=== PATIENT | female | born 1950 | race Caucasian/White ===

== ENCOUNTER 2022-03-17 09:01 | Outpatient (CLI) | payer OTHER, SELFPAY ==
[2022-03-17 10:12] LABS: SARS Antigen* negative (Negative)
--- NOTE | 2022-03-17 10:35 | W.ANESCHARGE ---
Anesthesia Charges Start Date/Time Anesthesia Start Date: 03/17/22 Anesthesia Start Time: 09:55 Stop Date/Time Anesthesia Stop Date: 03/17/22 Anesthesia Stop Time: 10:33 Summary Emergency: No Extremes of Age: Over 72-CPT [id number]
--- NOTE | 2022-03-17 10:51 | W.ANESCHARGE ---
Anesthesia Charges Start Date/Time Anesthesia Start Date: 03/17/22 Anesthesia Start Time: 09:55 Stop Date/Time Anesthesia Stop Date: 03/17/22 Anesthesia Stop Time: 10:33 Summary Emergency: No Extremes of Age: Over 72-CPT [id number]
== END 2022-03-17 09:02 | disposition home or self-care (01) ==
LOC: OP CLINIC 09:02
PROVIDERS: PCP Family Medicine; Visit Provider Surgery
DX: Z12.11 Encounter for screening for malignant neoplasm of colon; K62.1 Rectal polyp; K57.30 Diverticulosis of large intestine without perforation or abscess without bleeding; Z86.010 Personal history of colon polyps
CPT/HCPCS: 00811; 00812; 45385; 87426; 99100; J2704

== ENCOUNTER 2022-09-07 08:57 | Outpatient (CLI) | payer OTHER, SELFPAY ==
--- NOTE | 2022-09-07 09:15 | CRLHL7_ITS ---
For Patients: As a result of the Cures Act, medical imaging exams and procedure reports are released immediately into your electronic medical record. You may view this report before your referring provider. If you have questions, please contact your health care provider. BILATERAL SCREENING MAMMOGRAM WITH COMPUTER-AIDED DETECTION AND TOMOSYNTHESIS TECHNIQUE: CC and MLO views were obtained. These mammographic images have been obtained using full-field digital technique. These mammographic images were interpreted with the benefit of computer-aided detection. Breast Tomosynthesis was used in this interpretation. COMPARISON FILM: 05/07/21, 04/30/20, 04/11/19. FINDINGS: There are scattered areas of fibroglandular density IMPRESSION: There is no radiographic evidence for malignancy. ASSESSMENT: BI-RADS Category 1: Negative RECOMMENDATION: Routine screening mammogram in 1 year. A lay language report of this examination will be provided to the patient. Leroy Bui M.D. Diagnostic Radiologist [email or web address] MARIA M/savita / be/Dictated by: Leroy Bui MD @ 09/07/2022 12:26:00 PM (Electronically Signed)
== END 2022-09-07 08:58 | disposition home or self-care (01) ==
LOC: MAMMO 08:58
PROVIDERS: PCP Family Medicine; Visit Provider Family Medicine
DX: Z12.31 Encounter for screening mammogram for malignant neoplasm of breast (principal)
CPT/HCPCS: 77063; 77067

== ENCOUNTER 2022-10-30 08:03 | Outpatient (CLI) | payer OTHER, SELFPAY | END 2022-10-30 08:04 | disposition home or self-care (01) | LOC: NFLDREF 11-01 18:13 | PROVIDERS: PCP Family Medicine; Referring Provider Family Medicine; Visit Provider Family Medicine | DX: E78.00 Pure hypercholesterolemia, unspecified (principal) | CPT/HCPCS: 80053; 80061 ==

== ENCOUNTER 2023-02-01 12:52 | Outpatient (CLI) | payer OTHER, SELFPAY ==
--- NOTE | 2023-02-01 13:00 | CRLHL7_ITS ---
For Patients: As a result of the Century Cures Act, medical imaging exams and procedure reports are released immediately into your electronic medical record. You may view this report before your referring provider. If you have questions, please contact your health care provider. INDICATION: Shortness of breath and dyspnea on exertion. TECHNIQUE: CT chest PE was acquired with 95 cc Isovue 370 intravenous contrast. COMPARISON: None. FINDINGS: Heart and vasculature: Extensive filling defects consistent with acute pulmonary embolus. Filling defects are at the branch point of the right upper lobe pulmonary artery, right lower lobe, right middle lobe, left lower lobe and left upper lobe. Occlusive component within the lingula proximally. RV/LV ratio: 1.43 No pericardial effusion. Thoracic aorta is normal in caliber. Lungs and pleural: No pleural effusion or pneumothorax. Biapical pleural parenchymal scarring. Scattered areas of discoid atelectasis within both lungs. Lymph nodes/mediastinum: No mediastinal, hilar, or axillary adenopathy. No enlarged mediastinal lymph nodes. Chest wall: No masses. Upper abdomen: Cyst at the dome of the liver measuring 2.7 centimeters. Bones: Unremarkable for age. IMPRESSION: Acute pulmonary embolus extending to all lobes with elevated RV/LV ratio suggesting right heart strain. Results called to ARELIS Quinteros, for Ronda Herbert at [facility] at 1622 on 02/01/2023. Patient was sent to the ER for the CT scan and Neli will contact her to stay at the ER for evaluation. Please note that all CT scans at this facility use dose modulation, iterative reconstruction, and/or weight-based dosing when appropriate to reduce radiation dose to as low as reasonably achievable. Dictated by Mau Jhaveri MD @ 02/01/2023 4:23:35 PM (Electronically Signed)
== END 2023-02-01 12:53 | disposition home or self-care (01) ==
PROVIDERS: PCP Family Medicine; Visit Provider Physician Assistant Medical
DX: R05.9 Cough, unspecified (principal); I26.99 Other pulmonary embolism without acute cor pulmonale; R06.09 Other forms of dyspnea
CPT/HCPCS: 71275; 99284; A9270; Q9967

== ENCOUNTER 2023-02-01 17:04 | Emergency (ER) | payer OTHER, SELFPAY ==
[2023-02-01] VITALS (9 sets, daily range): BP systolic 133–141; BP diastolic 85–90; PULSE 88–103; RESP 16; TEMP 37.2; O2SAT 91–98; BMI 24.3
--- NOTE | 2023-02-01 19:09 | ED.SOB ---
HPI - SOB/Dyspnea General Chief Complaint: Shortness of Breath/Dyspnea Stated Complaint: Blood clot in lung Time Seen by Provider: 02/01/23 17:09 History of Present Illness HPI Narrative: This 72-year-old female was at a [facility] and sent here for of CTA of her chest to rule out pulmonary embolism. She was instructed to come to the ER if the results were positive. There is evidence of bilateral pulmonary embolism with some suggestion of some right heart strain. The patient states that these symptoms began a couple days ago when she was playing Pickle ball. She states that she is very active but has noticed some dyspnea with exertion. She does not have any chest pain. She does have a history of breast cancer 9 years ago. She has not had blood caught in the past. Related Data Home Medications Medication Instructions Recorded Confirmed fluorouracil 5 % topical cream 1 applic topical .1 x week 11/05/22 02/01/23 (Efudex) calcium citrate 200 mg 1 tab PO QDAY 02/01/23 02/01/23 calcium-vitamin D3 6.25 mcg (250 unit) tablet multivitamin (Daily Multi-Vitamin 1 tab PO QAM 02/01/23 02/01/23 tablet) niacinamide 500 mg tablet 500 mg PO DAILY 02/01/23 02/01/23 Previous Rx's Medication Instructions Recorded lovastatin 40 mg tablet 40 mg PO QPM #90 tabs 11/05/22 apixaban 5 mg (74 tabs) tablets in See Rx Instructions PO .COMPLEX 02/01/23 a dose pack (Eliquis DVT-PE Treat #74 ea 30D Start) Allergies Allergy/AdvReac Type Severity Reaction Status Date / Time bee venom protein (honey bee) Allergy Intermediate Rash Verified 02/01/23 17:33 Sulfa (Sulfonamide Allergy Mild Rash Verified 02/01/23 17:33 Antibiotics) Review of Systems Status of ROS: Reports: 10 or more systems reviewed and unremarkable except as noted in History and below Narrative: Constitutional: No fevers, no weight gain or loss. Eyes: No discharge. No vision changes. HENT: No congestion, no sore throat, no ear pain. Cardiovascular: No chest pain, no palpitations. Respiratory: No wheezes, no cough. Shortness of breath as described above. Gastrointestinal: No abdominal pain, no vomiting, no diarrhea. Genitourinary: No dysuria, no hematuria. Musculoskeletal: Normal range of motion. Skin: No rashes, no pruritis. Neurological: No dizziness, weakness, sensory change, speech change. Endo/Heme/Allergies: No bruising or bleeding. No polydipsia. Pysch: no suicidality, no anxiety, no insomnia. All other systems reviewed and are negative. [facility] Medical History (Updated 02/01/23 @ 19:15 by Carrington Montejo MD) Cough ?R05.9 - Cough, unspecified (ICD-10) MATOS (dyspnea on exertion) ?R06.09 - Other forms of dyspnea (ICD-10) Breast cancer ?C50.919 - Malignant neoplasm of unspecified site of unspecified female breast (ICD-10) History of esophagitis ?Z87.19 - Personal history of other diseases of the digestive system (ICD-10) History of colonic polyps ?Z86.010 - Personal history of colonic polyps (ICD-10) Surgical History (Updated 11/05/22 @ 08:31 by Madalyn Ron MD) Status post left breast lumpectomy (09/2013) ?Z98.890 - Other specified postprocedural states (ICD-10) Status post excision of lipoma ?Z98.890 - Other specified postprocedural states (ICD-10) ?Z86.018 - Personal history of other benign neoplasm (ICD-10) History of colonoscopy with polypectomy (2017) ?Z98.890 - Other specified postprocedural states (ICD-10) ?Z86.010 - Personal history of colonic polyps (ICD-10) History of basal cell carcinoma (BCC) excision ?Z98.890 - Other specified postprocedural states (ICD-10) ?Z85.828 - Personal history of other malignant neoplasm of skin (ICD-10) Family History Family/Other Diabetes Prostate cancer Mother Osteoporosis Thyroid disease Social History Narrative: Does not drink alcohol Does not use illicit drugs Non-smoker Smoking Status: Never smoker Do you use any of these nicotine containing products: None Second hand tobacco smoke exposure: No How often do you have a drink containing alcohol: never AUDIT-C Alcohol total score: 0 Non-prescribed substance use: denies use Little interest or pleasure in doing things: not at all Feeling down, depressed, or hopeless: not at all Exam Narrative: Exam Narrative: Constitutional: Well-developed, well-nourished, no acute distress. HEENT: Normocephalic, atraumatic. Neck: Normal range of motion. Nontender. Supple. Heart: Regular. No murmurs. Normal rate. Intact distal pulses. Lungs: Clear to auscultation. No chest discomfort. No wheezes, rhonchi, or rales. Abdomen: Normal bowel sounds. Nontender. No rebound tenderness. Genitalia: Deferred. Back: No midline tenderness. Normal range of motion. Extremities: Normal range of motion. No injury. Skin: Intact. No rash. Warm. No erythema or pallor. Neurologic: No altered sensation. No weakness. Alert and oriented. Psychiatric: No suicidality. No anxiety or depression. No insomnia. Nursing notes and vitals signs are reviewed. Const: Vital Signs, click to edit/add: Vital Signs - 24 hr 02/01/23 17:27 Temperature 98.9 F Pulse Rate [Pulse Oximeter] 102 H Respiratory Rate 16 Blood Pressure [Ri t Upper Arm] 137/87 Pulse Oximetry 91 Oxygen Delivery Me thod Room Air Course Vital Signs Vital signs: Initial Vital Signs Temperature 98.9 F 02/01/23 17:27 Temperature Source Temporal Artery Scan 02/01/23 17:27 Pulse Rate 102 H 02/01/23 17:27 Respiratory Rate 16 02/01/23 17:27 Blood Pressure 137/87 02/01/23 17:27 Blood Pressure Mean 103 02/01/23 17:27 Blood Pressure Position Sitting 02/01/23 17:27 Pulse Oximetry 91 02/01/23 17:27 Oxygen Delivery Method Room Air 02/01/23 17:27 Vital Signs Temperature 98.9 F 02/01/23 17:27 Pulse Rate 102 H 02/01/23 17:27 Respiratory Rate 16 02/01/23 17:27 Blood Pressure 137/87 02/01/23 17:27 Pulse Oximetry 91 02/01/23 17:27 Oxygen Delivery Method Room Air 02/01/23 17:27 Temperature 98.9 F 02/01/23 17:27 Pulse Rate 102 H 02/01/23 17:27 Respiratory Rate 16 02/01/23 17:27 Blood Pressure 137/87 02/01/23 17:27 Pulse Oximetry 91 02/01/23 17:27 Oxygen Delivery Method Room Air 02/01/23 17:27 MDM - SOB/Dyspnea MDM Narrative Medical decision making narrative: This patient comes here to the emergency room because of a positive finding for pulmonary embolism. I did review lab and imaging results that were completed prior to arrival here. Her workup was appropriate and there was no need for any further testing here. CT imaging does show bilateral clots with some suggestion of right heart strain and a ratio of right ventricle the left ventricle of 1.43. Her troponin returns at 0.01. I did contact the hospitalist on-call with regard to this ratio and what level of strain warrants further workup and planning more immediately. I did also use the PESI score which for her returns at 100 in the intermediate range. She scores 100 because of her age, gender, and history of breast cancer. She does not have tachycardia, hypoxia, low temperature, or low blood pressure. I explained these matters to the patient and did offer hospitalization or transfer which she declined In a process of shared decision making. The patient did receive a tablet of Eliquis and a prescription for a starter pack for Eliquis. I did describe signs and symptoms that would indicate a need for return and re-evaluation. I also recommended that she follow up to have a echocardiogram for further information regarding the strain on her heart. The patient understands these plans and is agreeable. A family member with her today is a pharmacist which gives extra insight and understanding regarding these matters. Discharge Plan Discharge Clinical Impression: Pulmonary embolism Patient Disposition: Home, Self-Care Condition: Stable Additional Instructions: Take Eliquis as prescribed. Follow up with primary physician for ongoing management. A echocardiogram is recommended for further evaluation. Return if worsening symptoms happen. Prescriptions: New Eliquis DVT-PE Treat 30D Start 5 mg (74 tabs) tablets,dose pack See Rx Instructions PO .COMPLEX Qty: 74 0RF Rx Instructions: orally per package directions No Action fluorouracil [Efudex] 5 % cream 1 applic topical .1 x week lovastatin 40 mg tablet 40 mg PO QPM Qty: 90 3RF calcium citrate-vitamin D3 200 mg-6.25 mcg (250 unit) tablet 1 tab PO QDAY multivitamin [Daily Multi-Vitamin] Tablet 1 tab PO QAM niacinamide 500 mg tablet 500 mg PO DAILY Follow Up/Referrals: Madalyn Ron MD [Primary Care Provider] - Stand Alone Forms: [employer] Info Instructions
[2023-02-01] MEDS: APIXABAN 5 MG TABLET 10 MG PO (19:45)
== END 2023-02-01 19:49 | disposition home or self-care (01) ==
LOC: ED 19:39
PROVIDERS: Emergency Provider Emergency Medicine Emergency Medical Services; PCP Family Medicine
DX: I26.99 Other pulmonary embolism without acute cor pulmonale (principal)
CPT/HCPCS: 99283; 99284; A9270

== ENCOUNTER 2023-05-10 09:50 | Outpatient (CLI) | payer MEDICARE, SELFPAY | END 2023-05-10 09:51 | disposition home or self-care (01) | LOC: NFLDREF 05-12 08:35 | PROVIDERS: PCP Family Medicine; Referring Provider Family Medicine; Visit Provider Obstetrics & Gynecology | DX: N36.8 Other specified disorders of urethra (principal); N90.89 Other specified noninflammatory disorders of vulva and perineum | CPT/HCPCS: 87086 ==

== ENCOUNTER 2023-08-31 11:00 | Outpatient (RCR) | payer MEDICARE, SELFPAY ==
[2023-08-25 10:17] LABS: D Dimer Quantitative* < 0.27 ug/ml (0.00-0.50)
[2023-08-27 00:42] LABS: B2Glycoprotein 1, IgG Antibody <10 SGU (<=20); B2Glycoprotein 1, IgM Antibody <10 SMU (<=20)
[2023-08-27 06:35] LABS: Cardiolipin Antibody IgA <10 APL (<=11); Cardiolipin Antibody IgG <10 GPL (<=14); Cardiolipin Antibody IgM <10 MPL (<=12)
[2023-08-27 15:58] LABS: Protein C Functional 199 % (83-168); Protein S Functional 124 % (57-131)
[2023-08-27 19:11] LABS: Antithrombin, Enzymatic 131 % (76-128)
[2023-08-28 15:35] LABS: FACV Specimen Whole Blood; Factor V Leiden (F5) Mutation Negative
[2023-08-28 15:48] LABS: PT PCR Specimen Whole Blood; Prothrombin(F2)G20210A Variant Negative
== END 2023-09-05 23:59 | disposition home or self-care (01) ==
LOC: CCIC 11:00
PROVIDERS: PCP Family Medicine; Referring Provider Family Medicine; Visit Provider Internal Medicine Hematology & Oncology
DX: I26.99 Other pulmonary embolism without acute cor pulmonale (principal); Z79.01 Long term (current) use of anticoagulants
CPT/HCPCS: 36415; 81240; 81241; 85300; 85303; 85306; 85379; 85610; 85613; 85730; 86146; 86147; 99202; 99204; 99213; 99214; G0463

== ENCOUNTER 2023-09-09 09:02 | Outpatient (CLI) | payer MEDICARE, SELFPAY ==
--- NOTE | 2023-09-09 09:15 | MM_ITS ---
Patient: MARU PANDA Facility:?[facility] Patient ID:?[id number] Site Patient ID:?[id number]. Site :?[id number] Study:?XRay-Breast Bilateral 3D W/CAD-09/09/2023 9:28:23 AM Ordering Physician:Madalyn Leach Final Report: BILATERAL SCREENING MAMMOGRAM WITH COMPUTER-AIDED DETECTION AND TOMOSYNTHESIS TECHNIQUE: CC and MLO views were obtained. These mammographic images have been obtained using full-field digital technique. These mammographic images were interpreted with the benefit of computer-aided detection. Breast Tomosynthesis was used in this interpretation. COMPARISON FILM: 09/07/22, 05/07/21, 04/30/20. FINDINGS: There are scattered areas of fibroglandular density. IMPRESSION: There is no radiographic evidence for malignancy. ASSESSMENT: BI-RADS Category 2: Benign RECOMMENDATION: Routine screening mammogram in 1 year. A lay language report of this examination will be provided to the patient. Leroy Bui M.D. Diagnostic Radiologist [email or web address] DSM/sp R& Transcribed: 1:16 p.m. SP/Dictated by: Leroy Bui MD @ 09/09/2023 12:09:00 PM Signed by:?Leroy Bui MD @09/09/2023 3:46:11 PM (Electronic Signature)
== END 2023-09-09 09:03 | disposition home or self-care (01) ==
LOC: MAMMO 09:02
PROVIDERS: PCP Family Medicine; Visit Provider Family Medicine
DX: Z12.31 Encounter for screening mammogram for malignant neoplasm of breast (principal)
CPT/HCPCS: 77063; 77067

== ENCOUNTER 2024-01-04 07:43 | Outpatient (CLI) | payer MEDICARE, SELFPAY | END 2024-01-04 07:44 | disposition home or self-care (01) | LOC: NFLDREF 01-07 08:06 | PROVIDERS: PCP Family Medicine; Referring Provider Family Medicine; Visit Provider Family Medicine | DX: E78.00 Pure hypercholesterolemia, unspecified (principal); Z11.59 Encounter for screening for other viral diseases; Z13.228 Encounter for screening for other metabolic disorders | CPT/HCPCS: 80053; 80061; 86803 ==

== ENCOUNTER 2024-09-18 11:19 | Outpatient (CLI) | payer MEDICARE, SELFPAY ==
--- NOTE | 2024-09-18 11:30 | CRLHL7_ITS ---
For Patients: As a result of the Century Cures Act, medical imaging exams and procedure reports are released immediately into your electronic medical record. You may view this report before your referring provider. If you have questions, please contact your health care provider. INDICATION: BILATERAL SCREENING MAMMOGRAM, ASYMPTOMATIC 74 Y/O FEMALE COMPARISON: 09/09/23, 09/07/22, 05/07/21 TECHNIQUE: CC and MLO views were obtained. These mammographic images have been obtained using full-field digital technique. These mammographic images were interpreted with the benefit of computer aided detection and tomosynthesis. BREAST COMPOSITION: There are scattered areas of fibroglandular density. FINDINGS: No suspicious findings. ASSESSMENT: BI-RADS 1 Negative RECOMMENDATION: Annual screening mammogram. A lay language report of this examination will be provided to the patient. Dictated by: Leroy Bui MD @ 09/25/2024 09:23:19 (Electronically Signed)
== END 2024-09-18 11:20 | disposition home or self-care (01) ==
LOC: MAMMO 11:20
PROVIDERS: PCP Family Medicine; Visit Provider Family Medicine
DX: Z12.31 Encounter for screening mammogram for malignant neoplasm of breast (principal)
CPT/HCPCS: 77063; 77067

== ENCOUNTER 2025-02-12 07:50 | Outpatient (CLI) | payer MEDICARE, SELFPAY | END 2025-02-12 07:51 | disposition home or self-care (01) | LOC: NFLDREF 02-15 07:49 | PROVIDERS: PCP Family Medicine; Referring Provider Family Medicine; Visit Provider Family Medicine | DX: Z00.00 Encounter for general adult medical examination without abnormal findings (principal); E78.00 Pure hypercholesterolemia, unspecified | CPT/HCPCS: 80053; 80061; 84443 ==

== ENCOUNTER 2025-03-15 11:40 | Outpatient (CLI) | payer MEDICARE, SELFPAY | END 2025-03-15 11:41 | disposition home or self-care (01) | LOC: NFLDREF 03-17 18:49 | PROVIDERS: PCP Family Medicine; Referring Provider Family Medicine; Visit Provider Family Medicine | DX: R00.0 Tachycardia, unspecified (principal); R79.89 Other specified abnormal findings of blood chemistry | CPT/HCPCS: 84439; 84443; 84480 ==

== ENCOUNTER 2025-04-16 09:43 | Outpatient (CLI) | payer MEDICARE, SELFPAY | END 2025-04-16 09:44 | disposition home or self-care (01) | LOC: RAD 09:44 | PROVIDERS: PCP Family Medicine; Visit Provider Internal Medicine | DX: R00.2 Palpitations (principal) | CPT/HCPCS: 93306 ==